=== PATIENT | male | born 1960 | race African-American/Black ===

== ENCOUNTER 2018-03-14 14:14 | Emergency (ER) | payer BC, OTHER ==
[~2018-03-14] VITALS: Ht 182.9 cm; Wt 104.3 kg
[2018-03-14 15:03] VITALS: BP 159/86
[2018-03-14 15:15] LABS: BILIRUBIN,URINE NEGATIVE (NEG); CLARITY,URINE CLEAR; COLOR,URINE YELLOW; NITRITE,URINE NEGATIVE (NEG); PH,URINE 5.5; PROTEIN,URINE NEGATIVE (NEG-TRACE); UROBILINOGEN,URINE 0.2 mg/dL (0.2 mg/dL)
[2018-03-14 15:18] LABS: BACTERIA,URINE 0 /HPF (0-FEW); RBC,URINE 0 /HPF (0-2); SQUAMOUS EPITHELIAL CELL,UR MOD /LPF; WBC,URINE OCC /HPF (0-4)
[2018-03-14] MEDS ORDERED: AZITHROMYCIN 250 MG TABLET. PO ONE (15:30)
[2018-03-14] MEDS ORDERED: cefTRIAXone IM 250 MG VIAL IM ONE (15:30)
[2018-03-14] MEDS ORDERED: metroNIDAZOLE 500 MG TABLET PO ONE (15:30)
[2018-03-14] MEDS ORDERED: FLUC150T PO (15:34)
--- NOTE | 2018-03-14 15:34 | PHYS DOC ---
Past Medical History Past Medical History: Diabetes-Type II, Hypertension Past Surgical History: No Surgical History Alcohol Use: None Drug Use: None Adult General Chief Complaint Chief Complaint: SEXUALLY TRANSMITTED DISEASE HPI HPI Patient is a 57 year old male presents to the ED complaining of dysuria 2 days ago. Patient states he has 2 sexual partners recently. States that he was told by one of them that she had a yeast infection. States he has been having burning when he urinates and he noticed cuts around his penis a few days after intercourse. Describes the pain as burning. Rates the pain as 5 out of 10. Denies hematuria, testicular pain, abdominal pain, diarrhea, fever, chest pain or shortness of breath. Review of Systems Review of Systems Constitutional: Denies fever or chills [] Eyes: Denies change in visual acuity, redness, or eye pain [] HENT: Denies nasal congestion or sore throat [] Respiratory: Denies cough or shortness of breath [] Cardiovascular: No additional information not addressed in HPI [] GI: Denies abdominal pain, nausea, vomiting, bloody stools or diarrhea [] : Complains of dysuria. Denies hematuria [] Musculoskeletal: Denies back pain or joint pain [] Integument: Denies rash or skin lesions [] Neurologic: Denies headache, focal weakness or sensory changes [] All other systems were reviewed and found to be within normal limits, except as documented in this note. Current Medications Current Medications Current Medications Medications (Trade) Dose Ordered Sig/Haroon Start Time Stop Time Status Last Admin Dose Admin Azithromycin (Zithromax) 1,000 mg 1X ONCE 03/14/18 15:30 03/14/18 15:31 DC 03/14/18 15:30 1,000 MG Ceftriaxone Sodium (Rocephin Im) 250 mg 1X ONCE 03/14/18 15:30 03/14/18 15:31 DC 03/14/18 15:29 250 MG Metronidazole (Flagyl) 2,000 mg 1X ONCE 03/14/18 15:30 03/14/18 15:31 DC 03/14/18 15:30 2,000 MG Allergies Allergies Allergies Coded Allergies Type Severity Reaction Last Updated Verified No Known Drug Allergies 02/09/14 No Physical Exam Physical Exam Constitutional: Well developed, well nourished, no acute distress, non-toxic appearance. [] HENT: Normocephalic, atraumatic Cardiovascular:Heart rate regular rhythm, no murmur [] Lungs & Thorax: Bilateral breath sounds clear to auscultation [] Abdomen: Bowel sounds normal, soft, no tenderness, no masses, no pulsatile masses. [] : tiny abrasions/cuts to foreskin. no herpetic like lesions. no penile discharge. no testicular or scrotal abnormality. Skin: Warm, dry, no erythema, no rash. [] Back: No tenderness, no CVA tenderness. [] Neurologic: Alert and oriented X 3, normal motor function, normal sensory function, no focal deficits noted. [] Psychologic: Affect normal, judgement normal, mood normal. [] Current Patient Data Vital Signs Vital Signs Date Time Temp Pulse Resp B/P (MAP) Pulse Ox O2 Delivery O2 Flow Rate FiO2 03/14/18 15:03 98.7 76 18 159/86 (110) 95 Room Air 98.7 Lab Values Laboratory Tests Test 03/14/18 15:05 Urine Collection Type Unknown Urine Color Yellow Urine Clarity Clear Urine pH 5.5 Urine Specific [place] >=1.030 Urine Protein Negative mg/dL (NEG-TRACE) Urine Glucose (UA) 250 mg/dL (NEG) Urine Ketones (Stick) Negative mg/dL (NEG) Urine Blood Negative (NEG) Urine Nitrite Negative (NEG) Urine Bilirubin Negative (NEG) Urine Urobilinogen Dipstick 0.2 mg/dL (0.2 mg/dL) Urine Leukocyte Esterase Negative (NEG) Urine RBC 0 /HPF (0-2) Urine WBC Occ /HPF (0-4) Urine Squamous Epithelial Cells Mod /LPF Urine Bacteria 0 /HPF (0-FEW) Urine Mucus Marked /LPF EKG EKG [] Radiology/Procedures Radiology/Procedures [] Course & Med Decision Making Course & Med Decision Making Pertinent Labs and Imaging studies reviewed. (See chart for details) []Will treat for gonorrhea and Chlamydia in the ED. Patient given Rocephin, azithromycin and Flagyl. We'll treat with Diflucan also for yeast infection exposure (which patient is most concerned about). Discussed safe sex practice. Discussed follow-up STD testing and making partners aware. Discussed reasons to return to the ED. Patient understands and agrees with plan. Jarad Disclaimer Dragon Disclaimer This electronic medical record was generated, in whole or in part, using a voice recognition dictation system. Departure Departure Impression: Primary Impression: Dysuria Disposition: HOME, SELF-CARE Condition: STABLE Referrals: NON,STAFF (PCP) DARSHAN ISAACS MD Patient Instructions: Sexually Transmitted Disease, [id number] Scripts Fluconazole (DIFLUCAN) 150 Mg Tablet 1 TAB PO ONCE, #2 TAB 0 Refills Prov: IVAN LAURA 03/14/18 IVAN LAURA Mar 14, 2018 15:34
== END 2018-03-14 15:42 | disposition home or self-care (01) ==
LOC: ER 14:14
DX: R30.0 Dysuria (principal); E11.9 Type 2 diabetes mellitus without complications; I10 Essential (primary) hypertension
CPT/HCPCS: 81001; 87491; 87591; 96372; 99284; J0696; Q0144

== ENCOUNTER 2019-02-01 14:01 | Emergency (ER) | payer BC, OTHER ==
[~2019-02-01] VITALS: Ht 182.9 cm; Wt 104.3 kg
[~2019-02-01 14:01] MED LIST: FLUC150T PO
[2019-02-01 14:36] VITALS: BP 176/96
[2019-02-01] MEDS ORDERED: NYST15OI TP (14:51)
--- NOTE | 2019-02-01 14:51 | PHYS DOC ---
Past Medical History Past Medical History: Diabetes-Type II, Hypertension Past Surgical History: No Surgical History Alcohol Use: None Drug Use: None Adult General Chief Complaint Chief Complaint: SKIN RASH/ABSCESS HPI HPI Patient is a 58 year old male with history of diabetes type 2, hypertension, who presents to the ED today complaining of feeling on his penis that has been going on for a couple days. Patient states he has history of yeast infection tonya und his penis. He states is uncircumcised. Denies any exposures to STDs. Review of Systems Review of Systems Constitutional: Denies fever or chills [] GI: Denies abdominal pain, nausea, vomiting, bloody stools or diarrhea [] : Reports peeling around his penis. Denies dysuria or hematuria [] Musculoskeletal: Denies back pain or joint pain [] Integument: Denies rash or skin lesions [] Neurologic: Denies headache, focal weakness or sensory changes [] All other systems were reviewed and found to be within normal limits, except as documented in this note. Allergies Allergies Allergies Coded Allergies Type Severity Reaction Last Updated Verified No Known Drug Allergies 02/09/14 No Physical Exam Physical Exam Constitutional: Well developed, well nourished, no acute distress, non-toxic appearance. [] Skin: Warm, dry, no erythema, no rash. [] Uncircumcised male penis with peeling skin and drainage consistent with fungal infection. Afternoon Nanny was RN during exam Back: No tenderness, no CVA tenderness. [] Extremities: No tenderness, no cyanosis, no clubbing, ROM intact, no edema. [] Neurologic: Alert and oriented X 3, normal motor function, normal sensory function, no focal deficits noted. [] Psychologic: Affect normal, judgement normal, mood normal. [] Current Patient Data Vital Signs Vital Signs Date Time Temp Pulse Resp B/P (MAP) Pulse Ox O2 Delivery O2 Flow Rate FiO2 02/01/19 14:36 98.4 64 16 176/96 (122) 98 Room Air 98.4 EKG EKG [] Radiology/Procedures Radiology/Procedures [] Course & Med Decision Making Course & Med Decision Making Pertinent Labs and Imaging studies reviewed. (See chart for details) This is a 58-year-old uncircumcised male patient presenting to the ED today with balanitis. Importance of peanut hygiene emphasis. Discharged with nystatin cream. Follow-up with PCP in 1-2 weeks. Dragon Disclaimer Dragon Disclaimer This electronic medical record was generated, in whole or in part, using a voice recognition dictation system. Departure Departure Impression: Primary Impression: Balanitis Disposition: 01 HOME, SELF-CARE Condition: STABLE Referrals: DARSHAN ISAACS MD (PCP) follow up in 2 weeks Patient Instructions: Balanitis and Foreskin Hygiene Additional Instructions: You were seen with a fungal infection around the penis, try and keep this area clean and dry. Use the prescribed medication as ordered. Follow-up with your own doctor in 1-2 weeks. Scripts Nystatin (NYSTATIN) 15 Gm Oint...g. 1 NICOLAS TP TID, #30 GM 3 Refills Prov: SHANNAN BAUTISTA APRN 02/01/19 SHANNAN BAUTISTA APRN Feb 01, 2019 14:51
== END 2019-02-01 14:55 | disposition home or self-care (01) ==
LOC: ER 14:01
DX: N48.1 Balanitis (principal); E11.9 Type 2 diabetes mellitus without complications; I10 Essential (primary) hypertension
CPT/HCPCS: 99283

== ENCOUNTER → 2019-04-06 | Day surgery (SDC) | payer OTHER ==
[~2019-04-06] MED LIST changes: +ASPI81TA50 PO; +CRESTOR10 MG PO; +GLYCOPYRROLATE 1 MG/5 ML VIAL. ONE; +IV RINGERS,LACTATED 1000ML 1,000 ML IV SCH; +LIDOCAINE 2% PF 5 ML VIAL. ONE; +LISI1TAB19 PO; +METF10007 PO; +NYST15OI TP; +PROPOFOL 20 ML IV ONE; +TAMS0.4C97 PO
[2019-04-06 10:21] VITALS: BP 132/83
--- NOTE | 2019-04-06 23:32 | CONS ---
DATE OF CONSULTATION: 04/06/2019 REFERRING PHYSICIAN: Romulo Ramirez M.D. REASON FOR CONSULTATION: Colorectal screening. HISTORY OF PRESENT ILLNESS: A 58-year-old -[place] male with past medical history significant for hyperlipidemia, hypertension, diabetes. He is seen now for screening colon exam. Bowel habits are regular without diarrhea or constipation. There has been no melena and/or hematochezia. Weight and appetite are stable. Family history is unrevealing for colon polyps or colon cancers. He is otherwise without additional complaints with this being his first study. PAST MEDICAL HISTORY: Hypertension, diabetes, hyperlipidemia, and history of BPH. ALLERGIES: None. MEDICATIONS: Include aspirin, lisinopril, hydrochlorothiazide, metformin, Crestor, and Flomax. FAMILY AND SOCIAL HISTORY: Family history is noncontributory. He is a social drinker, nonsmoker. PAST SURGICAL HISTORY: Wrist surgery. REVIEW OF SYSTEMS: HEENT: There is no decrease in hearing or visual acuity issues. CARDIAC: There is history of hypertension. PULMONARY: No shortness of breath, productive cough, or asthma. RENAL: No dysuria, frequency, hematuria. ENDOCRINE: History of hyperlipidemia and diabetes. MUSCULOSKELETAL: No osteoarthrosis, arthralgias, myalgias. DERMATOLOGIC: No skin rashes or pruritus. NEUROLOGIC: No stroke, migraine, neuropathy. PSYCHIATRIC: No mood swings, depression, insomnia. GASTROINTESTINAL: See history of present illness. HEMATOLOGIC: No bleeding, bruising, coagulopathy. PHYSICAL EXAMINATION: GENERAL: Reveals a well-nourished, well-developed -[place] male who is alert, cooperative, in no acute distress. VITAL SIGNS: Temperature 97.5, pulse 61, respiratory rate 18. HEENT: Reveals normocephalic, atraumatic head. Pupils and extraocular muscles are not tested. Sclerae are anicteric. NECK: Supple. LUNGS: Clear. CARDIOVASCULAR: Reveals an S1, S2 without S3, S4 or appreciable murmur. ABDOMEN: Reveals a soft abdomen, normal bowel sounds, without appreciable hepatosplenomegaly. EXTREMITIES: Reveals no cyanosis, clubbing or edema. IMPRESSION: Colorectal screening is warranted at this time. Risks and benefits of procedure including risk of hemorrhage and perforation requiring operation have been discussed. The patient is willing to proceed. I would like to thank Dr. Ramirez for allowing us to consult and participate in this patient's care. HALEY KHAN MD DR: RAYMOND/melody JOB#: [id number] / [id number] ROMULO Mayer MD
== END ==
LOC: SURG 07:51
PROVIDERS: ATTEND Internal Medicine Gastroenterology
DX: Z12.11 Encounter for screening for malignant neoplasm of colon (principal); K64.0 First degree hemorrhoids; K63.89 Other specified diseases of intestine; E78.5 Hyperlipidemia, unspecified; I10 Essential (primary) hypertension; E11.9 Type 2 diabetes mellitus without complications; E78.00 Pure hypercholesterolemia, unspecified; E66.9 Obesity, unspecified; Z68.31 Body mass index [BMI] 31.0-31.9, adult; Z79.82 Long term (current) use of aspirin; Z98.890 Other specified postprocedural states; Z85.46 Personal history of malignant neoplasm of prostate; Z79.84 Long term (current) use of oral hypoglycemic drugs
CPT/HCPCS: 45378; J2001; J2704; J3490

== ENCOUNTER 2019-08-23 16:08 | Emergency (ER) | payer BC, OTHER ==
[~2019-08-23] VITALS: Ht 180.3 cm; Wt 104.5 kg
[~2019-08-23 16:08] MED LIST changes: -GLYCOPYRROLATE 1 MG/5 ML VIAL. ONE; -IV RINGERS,LACTATED 1000ML 1,000 ML IV SCH; -LIDOCAINE 2% PF 5 ML VIAL. ONE; -PROPOFOL 20 ML IV ONE
[2019-08-23 16:25] VITALS: BP 212/102
--- NOTE | 2019-08-23 16:27 | PHYS DOC ---
Past Medical History Past Medical History: Diabetes-Type II, Hypertension (SHANNAN BAUTISTA APRN) Past Surgical History: No Surgical History (SHANNAN BAUTISTA APRN) Smoking Status: Never Smoker Alcohol Use: None Drug Use: None (SHANNAN BAUTISTA APRN) Adult General Chief Complaint Chief Complaint: OTHER COMPLAINTS [facility] HPI Patient is a 58 year old male with history of diabetes type 2, hypertension, prostate cancer currently on radiation treatment and what sounds like chemo injection that began on August 06, 2019 who presents to the ED today requesting a note to return to work. Patient states he started radiation treatments 2 weeks ago and was informed he will start getting fatigue and having hot flashes. 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 Patient denies any fever. (SHANNAN BAUTISTA APRN) Review of Systems Review of Systems Constitutional: Reports fatigue and hot flashes due to radiation and chemo tx. Denies fever or chills [] Eyes: Denies change in visual acuity, redness, or eye pain [] HENT: Denies nasal congestion or sore throat [] Respiratory: Denies cough or shortness of breath [] Cardiovascular: No additional information not addressed in HPI [] GI: Denies abdominal pain, nausea, vomiting, bloody stools or diarrhea [] : Denies dysuria or hematuria [] Musculoskeletal: Denies back pain or joint pain [] Integument: Denies rash or skin lesions [] Neurologic: Denies headache, focal weakness or sensory changes [] All other systems were reviewed and found to be within normal limits, except as documented in this note. (SHANNAN BAUTISTA APRN) Allergies Allergies Allergies Coded Allergies Type Severity Reaction Last Updated Verified No Known Drug Allergies 04/06/19 No (DERIAN MINAYA MD) Physical Exam Physical Exam Constitutional: Well developed, well nourished, no acute distress, non-toxic appearance. [] HENT: Normocephalic, atraumatic, bilateral external ears normal, oropharynx moist, no oral exudates, nose normal. [] Eyes: PERRLA, EOMI, conjunctiva normal, no discharge. [] Neck: Normal range of motion, no tenderness, supple, no stridor. [] Cardiovascular:Heart rate regular rhythm, no murmur [] Lungs & Thorax: Bilateral breath sounds clear to auscultation [] Abdomen: Bowel sounds normal, soft, no tenderness, no masses, no pulsatile masses. [] Skin: Warm, dry, no erythema, no rash. [] Back: No tenderness, no CVA tenderness. [] Extremities: No tenderness, no cyanosis, no clubbing, ROM intact, no edema. [] Neurologic: Alert and oriented X 3, normal motor function, normal sensory function, no focal deficits noted. [] Psychologic: Extremely talkative (SHANNAN BAUTISTA APRN) Current Patient Data Vital Signs Vital Signs Date Time Temp Pulse Resp B/P (MAP) Pulse Ox O2 Delivery O2 Flow Rate FiO2 08/23/19 16:25 98.5 63 18 212/102 (138) 98 Room Air 98.5 (DERIAN MINAYA MD) EKG EKG [] (SHANNAN BATUISTA APRN) Radiology/Procedures Radiology/Procedures [] (SHANNAN BAUTISTA APRN) Course & Med Decision Making Course & Med Decision Making Pertinent Labs and Imaging studies reviewed. (See chart for details) This is a 58-year-old male patient presenting to the ED today requesting a note to return to work. Patient is currently on radiation treatment for prostate cancer as well as what sounded like injectable chemo. He had his radiation treatment today, developed hot flashes and fatigue which he reports he was informed this will happen during the treatment. He has had similar symptoms since the treatment began August 07, 2019. 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 He is afebrile. His blood pressure was notably high at 230s over low 100s. Patient reports history of hypertension. He states he does not want any medicines in the ED because he has his own BP medicine at home. He has no headache, no chest pain, no shortness of breath. He was provided a note for work and he left. (SHANNAN BAUTISTA APRN) Course & Med Decision Making Staff Physician Addendum: I was working in the ER during the course of this patient's visit. I was available for consultation as needed, but I was not directly involved in the care of this patient. (DERIAN MINAYA MD) Dragon Disclaimer Dragon Disclaimer This electronic medical record was generated, in whole or in part, using a voice recognition dictation system. (SHANNAN BAUTISTA APRN) Departure Departure Impression: Primary Impression: Prostate CA Additional Impression: High blood pressure Disposition: HOME, SELF-CARE Condition: STABLE Referrals: DARSHAN ISAACS MD (PCP) follow up in the course of this week or next week Patient Instructions: Cancer, Radiation Treatment Additional Instructions: Please follow up with your cancer doctor and your primary care doctor as soon as you can Problem Qualifiers Additional Impression: High blood pressure Hypertension type: unspecified Qualified Codes: I10 - Essential (primary) hypertension SHANNAN BAUTISTA APRN Aug 23, 2019 16:27 DERIAN MINAYA MD Aug 24, 2019 06:40
== END 2019-08-23 16:30 | disposition home or self-care (01) ==
LOC: ER 16:08
DX: C61 Malignant neoplasm of prostate (principal); I10 Essential (primary) hypertension; R53.83 Other fatigue; E11.9 Type 2 diabetes mellitus without complications; Z08 Encounter for follow-up examination after completed treatment for malignant neoplasm; Z85.46 Personal history of malignant neoplasm of prostate
CPT/HCPCS: 99281

== ENCOUNTER 2020-03-03 14:24 | Emergency (ER) | payer BC ==
[~2020-03-03] VITALS: Ht 182.9 cm; Wt 102.2 kg
[~2020-03-03 14:24] MED LIST changes: -LISI1TAB19 PO; +LISI1TAB37 PO
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
[2020-03-03] MEDS ORDERED: CYCL10TA2 PO (16:27)
[2020-03-03] MEDS ORDERED: HYDR-3164 PO (16:27)
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
[2020-03-03 16:40] VITALS: BP 151/86
== END 2020-03-03 16:39 | disposition home or self-care (01) ==
LOC: ER 14:24
DX: S13.4XXA Sprain of ligaments of cervical spine, initial encounter (principal); S00.83XA Contusion of other part of head, initial encounter; M47.812 Spondylosis without myelopathy or radiculopathy, cervical region; E11.9 Type 2 diabetes mellitus without complications; I10 Essential (primary) hypertension; Z85.46 Personal history of malignant neoplasm of prostate; V98.8XXA Other specified transport accidents, initial encounter; Y93.89 Activity, other specified; Y92.413 State road as the place of occurrence of the external cause; Y99.8 Other external cause status
CPT/HCPCS: 70450; 72125; 99285

== ENCOUNTER 2021-03-03 18:14 | Emergency (ER) | payer BC, OTHER ==
[~2021-03-03 18:14] MED LIST changes: +CYCL10TA2 PO; +HYDR-3164 PO
== END 2021-03-03 19:40 | disposition left against medical advice (07) ==
LOC: ER 18:14
DX: S00.522A Blister (nonthermal) of oral cavity, initial encounter (principal); Z53.21 Procedure and treatment not carried out due to patient leaving prior to being seen by health care provider; X58.XXXA Exposure to other specified factors, initial encounter; Y93.89 Activity, other specified; Y92.89 Other specified places as the place of occurrence of the external cause; Y99.8 Other external cause status

== ENCOUNTER 2021-03-15 13:18 | Emergency (ER) | payer BC ==
[~2021-03-15] VITALS: Ht 182.9 cm; Wt 108.0 kg
[2021-03-15] MEDS ORDERED: KETO15CR2 TP (13:40)
[2021-03-15] MEDS ORDERED: DOXY100C3 PO (13:40)
--- NOTE | 2021-03-15 13:42 | PHYS DOC ---
Past Medical History Past Medical History: Cancer, Diabetes-Type II, Hypertension Additional Past Medical Histor: PROSTATE CA Past Surgical History: No Surgical History Smoking Status: Never Smoker Alcohol Use: None Drug Use: None General Adult EDM: Chief Complaint: SEXUALLY TRANSMITTED DISEASE HPI: HPI: Patient is a 60 year old male who presents with 3 days of urinary burning and redness. He states he did have unprotected sex and would like to be checked and treated for STDs. Patient is uncircumcised. He denies a fever, back pain, ab dominal pain, nausea, vomiting, diarrhea, dizziness, headache. Review of Systems: Review of Systems: Constitutional: Denies fever or chills. [] Eyes: Denies change in visual acuity. [] HENT: Denies nasal congestion or sore throat. [] Respiratory: Denies cough or shortness of breath. [] Cardiovascular: Denies chest pain or edema. [] GI: Denies abdominal pain, nausea, vomiting, bloody stools or diarrhea. [] : Denies dysuria. + Burning with urination [] Musculoskeletal: Denies back pain or joint pain. [] Integument: Denies rash. + Redness at tip of penis [] Neurologic: Denies headache, focal weakness or sensory changes. [] Endocrine: Denies polyuria or polydipsia. [] Lymphatic: Denies swollen glands. [] Psychiatric: Denies depression or anxiety. [] Heart Score: C/O Chest Pain: No Allergies: Allergies: Allergies Coded Allergies Type Severity Reaction Last Updated Verified No Known Drug Allergies 04/06/19 No Physical Exam: PE: Constitutional: Well developed, well nourished, no acute distress, non-toxic appearance. [] HENT: Normocephalic, atraumatic, bilateral external ears normal, oropharynx moist, no oral exudates, nose normal. [] Eyes: PERRLA, EOMI, conjunctiva normal, no discharge. [] Neck: Normal range of motion, no tenderness, supple, no stridor. [] Cardiovascular:Heart rate regular rhythm, no murmur [] Lungs & Thorax: Bilateral breath sounds clear to auscultation [] Abdomen: Bowel sounds normal, soft, no tenderness, no masses, no pulsatile masses. [] Skin: Warm, dry, no erythema, no rash. Redness and excoriation to tip of penis. Uncircumcised. [] Back: No tenderness, no CVA tenderness. [] Extremities: No tenderness, no cyanosis, no clubbing, ROM intact, no edema. [] Neurologic: Alert and oriented X 3, normal motor function, normal sensory function, no focal deficits noted. [] Psychologic: Affect normal, judgement normal, mood normal. [] EKG: EKG: [] Radiology/Procedures: Radiology/Procedures: [] Course & Med Decision Making: Course & Med Decision Making Pertinent Labs and Imaging studies reviewed. (See chart for details) See HPI. Alert and oriented x4. Ambulatory steady gait. Speaks in full clear sentences. Tip of penis is reddened and excoriated. No drainage is seen. No swelling. Foreskin is easily retracted. Afebrile. Patient is given Rocephin and a prescription for doxycycline and ketoconazole cream. [] Dragon Disclaimer: Dragon Disclaimer: This electronic medical record was generated, in whole or in part, using a voice recognition dictation system. Departure Departure Impression: Primary Impression: Concern about STD in male without diagnosis Additional Impression: Balanitis Disposition: HOME / SELF CARE / HOMELESS Condition: STABLE Referrals: MARSHA SUTTON (PCP) Patient Instructions: Balanitis and Foreskin Hygiene, Sexually Transmitted Disease Additional Instructions: Take medication as it is prescribed. Do not have sex for 10 days after you are done with the medication. Have all other partners treated. The chlamydia and gonorrhea will be back in 24 to 48 hours. You will be called only if it is positive. Scripts Ketoconazole (KETOCONAZOLE) 15 Gm Cream..g. 1 NICOLAS TP DAILY for 10 Days, #15 GM Prov: MARILYN BRUSH BLACK LEATHER BUFFER 03/15/21 Doxycycline Hyclate (DOXYCYCLINE HYCLATE) 100 Mg Capsule 1 CAP PO BID, #14 CAP Prov: MARILYN BRUSH BLACK LEATHER BUFFER 03/15/21 MARILYN BRUSH APRN Mar 15, 2021 13:42
[2021-03-15 13:52] LABS: BILIRUBIN,URINE NEGATIVE (NEG); CLARITY,URINE CLEAR; COLOR,URINE YELLOW; NITRITE,URINE NEGATIVE (NEG); PH,URINE 6.5 (<5.0-8.0); PROTEIN,URINE NEGATIVE (NEG-TRACE)
[2021-03-15] MEDS: cefTRIAXone IM 500 MG VIAL. IM ONE (13:53)
[2021-03-15 14:00] LABS: BACTERIA,URINE 0 /HPF (0-FEW); RBC,URINE OCC /HPF (0-2); WBC,URINE OCC /HPF (0-4)
== END 2021-03-15 14:19 | disposition home or self-care (01) ==
LOC: ER 13:18
DX: Z20.2 Contact with and (suspected) exposure to infections with a predominantly sexual mode of transmission (principal); N48.1 Balanitis; E11.9 Type 2 diabetes mellitus without complications; I10 Essential (primary) hypertension
CPT/HCPCS: 81001; 87491; 87591; 96372; 99283; J0696